=== PATIENT | male | born 1950 | race Caucasian/White ===

== ENCOUNTER 2020-04-18 10:13 | Inpatient (IN) | payer OTHER, MEDICARE ==
[~2020-04-18] VITALS: Ht 177.8 cm; Wt 129.3 kg
[2020-04-18 10:17] VITALS: BP 117/69
[2020-04-18 11:02] LABS: BE(vivo) 4.2 mmol/L (-2 to +3); HCO3 31.1 mmol/L (22.0-26.0); PCO2 55.7 mmHg (35.0-45.0); PO2 55.5 mmHg (80.0-100.0); pH 7.365 (7.360-7.450); sO2 87.3 % (92.0-98.0)
[2020-04-18 11:49] LABS: ABSOLUTE NEUTROPHILS 5.3 thou/uL (1.4-8.2); BASOPHILS 0.3 % (0.0-2.0); HEMATOCRIT 42.7 % (42.0-52.0); HEMOGLOBIN 13.7 gm/dL (14.0-18.0); LYMPHOCYTES 11.2 % (24.0-44.0); MCH 30.6 pg (26.0-34.0); MCHC 32.2 g/dL (28.0-37.0); MONOCYTES 9.1 % (1.0-8.0); PLATELET COUNT 153 thou/uL (150-400); POLYS 79.4 % (36.0-66.0); RBC 4.49 mil/uL (4.50-6.00); RDW 14.9 % (10.5-14.5); WBC 6.7 thou/uL (4.0-11.0)
[2020-04-18 11:59] VITALS: BP 96/60
[2020-04-18 12:03] LABS: ANION GAP 6 mmol/L (7-16); BUN 34 mg/dL (7-18); CALCIUM 9.2 mg/dL (8.5-10.1); CHLORIDE 100 mmol/L (98-107); CO2 32 mmol/L (21-32); CREATININE 1.9 mg/dL (0.7-1.3); GLUCOSE 116 mg/dL (74-106); POTASSIUM 4.3 mmol/L (3.5-5.1); SODIUM 138 mmol/L (136-145)
[2020-04-18 12:13] LABS: ALBUMIN 2.9 g/dL (3.4-5.0); DIRECT BILIRUBIN 0.3 mg/dL (<0.1-0.2); SGOT 32 U/L (15-37); SGPT 37 U/L (30-65); TOTAL BILIRUBIN 0.9 mg/dL (0.2-1.0); TOTAL PROTEIN 7.8 g/dL (6.4-8.2); TROPONIN-I <0.06 ng/mL (<0.06)
[2020-04-18 12:43] VITALS: BP 115/55
[2020-04-18] MEDS ORDERED: FUROSEMIDE 40 M40 M1 PO (12:48)
[2020-04-18] MEDS ORDERED: ALLOPURINOL 30300 M1 PO (12:49)
[2020-04-18] MEDS ORDERED: ATORVASTATIN CA10 MG PO (12:49)
[2020-04-18] MEDS ORDERED: HYDROCHLOROTHIA25 M2 PO (12:49)
[2020-04-18] MEDS ORDERED: LOPRESSOR50 PO (12:49)
[2020-04-18] MEDS ORDERED: LISINOPRIL40 MG PO (12:49)
[2020-04-18] MEDS ORDERED: POTASSIUM CHLO10 ME1 PO (12:50)
[2020-04-18 15:16] VITALS: BP 110/59
[2020-04-18 16:00] VITALS: BP 110/59
[2020-04-18] MEDS ORDERED: ASA81BEC PO (16:10)
--- NOTE | 2020-04-18 16:59 | NUR ---
PT ADMIITED FROM ER FOR SOB AND POSITIVE COVID AT 1500PM, PT IS A&OX3, PT IS ON O2 4L/MIN/NC TO KEEP O2SAT AT 94-95%, PT'S VS ARE STABLE, PT STARTS HEPARIN DRIP 1500UNITS/HR AT 1600PM, LAB PTT WILL CHECK AT 2200PM TODAY, PT DENIES PAIN AND SOB AT THIS TIME, NO S/S OF BLEEDING AT THIS TIME.
[2020-04-18 20:04] VITALS: BP 117/71
--- NOTE | 2020-04-18 23:48 | NUR ---
PT ALERT AND ORIENTED X4 . VSS. PTT 181 ELEVATED. HEPARIN GTT TURNED OFF FOR NOW. WILL TITRATE ORDERED. NO S/S BLEEDING NOTED. LE DOPPLERS DONE AND ARE NEGATIVE. INSTRUCTED PT TO NOT GET OOB WITHOUT HELP DUE TO IVS AND O2. SPUTUM AND MRSA SENT TO LAB.
[2020-04-19] VITALS (7 sets, daily range): BP systolic 118–135; BP diastolic 62–81
--- NOTE | 2020-04-19 07:16 | NUR ---
PT RESTING QUIETLY. VSS UNLABORED ON 4LNC. SA 40'S ON MONITOR THIS AM. NO C/O PAIN OR SOA. PTT STILL PENDING AT CHANGE OF SHIFT. PCXRAY STILL TO BE DONE. PROGRESSING TOWARDS D/C GOALS.
[2020-04-19 07:23] LABS: ABSOLUTE NEUTROPHILS 6.1 thou/uL (1.4-8.2); BASOPHILS 0.1 % (0.0-2.0); HEMATOCRIT 42.2 % (42.0-52.0); HEMOGLOBIN 13.4 gm/dL (14.0-18.0); MCH 30.7 pg (26.0-34.0); MCHC 31.9 g/dL (28.0-37.0); MCV 96.4 fL (80.0-100.0); MONOCYTES 2.6 % (1.0-8.0); PLATELET COUNT 131 thou/uL (150-400); POLYS 89.3 % (36.0-66.0); RBC 4.37 mil/uL (4.50-6.00); RDW 15.4 % (10.5-14.5); WBC 6.8 thou/uL (4.0-11.0)
[2020-04-19 07:36] LABS: FIBRINOGEN 487.6 mg/dL (210-360); INR 1.1; PROTIME 10.8 Seconds (9.3-11.4)
[2020-04-19 07:42] LABS: ALBUMIN 2.6 g/dL (3.4-5.0); CALCIUM 8.9 mg/dL (8.5-10.1); CREATININE 1.5 mg/dL (0.7-1.3); POTASSIUM 4.6 mmol/L (3.5-5.1); TOTAL BILIRUBIN 0.4 mg/dL (0.2-1.0); TOTAL PROTEIN 7.5 g/dL (6.4-8.2)
--- NOTE | 2020-04-19 16:55 | NUR ---
RN ASSUMED PT'S CARE AT 0700AM, PT IS A&OX3, PT IS ON O2 4L/MIN/NC, PT'S SOB HAS IMPROVED, PT IS CONTINUING IV ABX, PT'S HEPARIN DRIP HAD STOPPED AT 0930AM PER ORDER, PT DOES NOT HAVE S/S OF BLEEDING BY THIS TIME, PT'S VS ARE STABLE, PT GETS UP TO BATH ROOM, PT DENIES PAIN AT THIS TIME.
--- NOTE | 2020-04-19 23:06 | NUR ---
PT PROGRESSING SLOWLY TOWARDS D/C GOALS. VSS. UNLABORED ON 4LNC. NO C/O PAIN. NO S/S DISTRESS PRESENTLY.
[2020-04-20 04:23] VITALS: BP 130/74
[2020-04-20 04:54] LABS: ALBUMIN 2.3 g/dL (3.4-5.0); CALCIUM 8.6 mg/dL (8.5-10.1); CREATININE 1.4 mg/dL (0.7-1.3); DIRECT BILIRUBIN 0.1 mg/dL (<0.1-0.2); PHOSPHORUS 3.6 mg/dL (2.5-4.9); POTASSIUM 4.5 mmol/L (3.5-5.1); TOTAL BILIRUBIN 0.3 mg/dL (0.2-1.0); TOTAL PROTEIN 6.4 g/dL (6.4-8.2)
--- NOTE | 2020-04-20 07:25 | NUR ---
PT PROGRESSING TOWARDS D/C GOALS. VSS. NO C/O PAIN. NO SOA NOTED.UNLABORED ON 4LNC.
[2020-04-20 09:00] VITALS: BP 124/77
[2020-04-20 12:43] VITALS: BP 122/67
--- NOTE | 2020-04-20 16:40 | NUR ---
RN ASSUMED PT'S CARE AT 0700AM, PT IS A&OX3, PT'S SOB HAS IMPROVED, PT'S O2 HAS REDUCED TO 3L FROM 4L/MIN/NC, PT IS CONTINUING IV ABX , PT GETS TO CHAIR AND BATHROOM BY HIMSELF, PT 'S VS AND O2SAT ARE STABLE, PT DENIES PAIN BY THIS TIME.
[2020-04-20 17:19] VITALS: BP 144/63
[2020-04-20 20:55] VITALS: BP 141/79
--- NOTE | 2020-04-20 22:49 | NUR ---
PT ALERT AND ORIENTED X4 . VSS. UNLABORED CURRENTLY. DENIED PAIN OR SOA. NO S/S DISTRESS. UP TO THE BR INDEPENDENTLY. WILL CONTINUE TO MONITOR PT FOR CHANGES.
[2020-04-21 01:06] VITALS: BP 125/69
[2020-04-21 04:43] VITALS: BP 148/76
--- NOTE | 2020-04-21 04:50 | NUR ---
PROGRESSING TOWARDS D/C GOALS VSS. AFEBRILE. UNLABORED ON 2.5LNC. LUNGS SOUND DIMINISHED WITH WHEEZES. NO C/O PAIN. NO S/S DISTRESS. PT UP IN CHAIR WATCHING TV.
[2020-04-21 06:51] LABS: ALBUMIN 2.4 g/dL (3.4-5.0); CALCIUM 8.6 mg/dL (8.5-10.1); CREATININE 1.1 mg/dL (0.7-1.3); DIRECT BILIRUBIN 0.1 mg/dL (<0.1-0.2); PHOSPHORUS 3.6 mg/dL (2.5-4.9); POTASSIUM 5.3 mmol/L (3.5-5.1); TOTAL BILIRUBIN 0.3 mg/dL (0.2-1.0); TOTAL PROTEIN 6.7 g/dL (6.4-8.2)
[2020-04-21 07:31] VITALS: BP 11/71
[2020-04-21 15:35] VITALS: BP 145/73
--- NOTE | 2020-04-21 16:31 | NUR ---
Case opened to follow for dc planning. Chart reviewed and case discussed with the care team. Pt admitted with Covid+pneumonia/sars. Covid+ almost 2wks ago with worsening repiratory symptoms. He is improving and his sob and o2 needs are better. Now on 2.5liters O2,steriods and iv atb. [employer] attempted to reach the pt via phone due to enhanced ISO. No answer. The pt is noted to be up ad pearl in his room to the chair and the bathroom and is a&ox4. He was indep and working prior to admission and lives at home with his . His pcp is Dr. Alford. Dc anticipated in [id number]. Will follow along should the pt need home o2 at dc.
--- NOTE | 2020-04-21 16:54 | NUR ---
RN ASSUMED PT'S CARE AT 0700AM, PT IS A&OX3, PT IS CONTINUING IV ABX , PT IS ON O2 2L/MIN/NC, PT'S VS ARE STABLE, PT GETS UP TO BATH ROOM AND WALKS IN HIS ROOM , PT DENIES SOB AND PAIN BY THIS TIME.
[2020-04-21 20:01] VITALS: BP 127/71
[2020-04-22 05:00] VITALS: BP 166/86
--- NOTE | 2020-04-22 06:12 | NUR ---
PT MAKING PROGRESS TOWARDS GOALS. DAY RN REPORTED PT O2 USE DOWN TO 2L FROM 4L. PT DENIED ANY SOA WITH AMBULATING TO THE TOILET AND ABOUT HIS ROOM. DENIES ANY SOA WHILE AT REST. DENIES O2 USE AT HOME. O2 SAT 99% ON 2L WHILE SITTING UP IN CHAIR. ENCOURAGED TO REMOVE THE O2 CANNULA WHILE AT REST BUT RESUME THE OXYGEN WITH ANY ACTIVITY AND UNTIL EVALUATED BY THE DAY RN.
[2020-04-22 06:29] LABS: ALBUMIN 2.6 g/dL (3.4-5.0); CALCIUM 8.8 mg/dL (8.5-10.1); CREATININE 1.3 mg/dL (0.7-1.3); DIRECT BILIRUBIN 0.2 mg/dL (<0.1-0.2); PHOSPHORUS 3.8 mg/dL (2.5-4.9); POTASSIUM 5.6 mmol/L (3.5-5.1); TOTAL BILIRUBIN 0.5 mg/dL (0.2-1.0); TOTAL PROTEIN 6.8 g/dL (6.4-8.2)
[2020-04-22 07:30] VITALS: BP 147/83
[2020-04-22 11:15] VITALS: BP 173/83
--- NOTE | 2020-04-22 14:09 | NUR ---
SW reviewed chart and spoke with nursing and attending physician. Pt remains in Enhanced Isolation due to COVID-19. Pt is afebrile and not requiring O2. Pt is on IV abx and IV steroids. Pt is completing course of Remdesivir. Rest/exercise oximetry was completed earlier today. Pt does not qualify for home O2. Plan is for pt to discharge home tomorrow. [facility] is following to assist as needed with discharge planning.
[2020-04-22 15:30] VITALS: BP 157/84
--- NOTE | 2020-04-22 16:01 | NUR ---
RN ASSUMED PT'S CARE AT 0700AM, PT IS A&OX3, PT IS CONTINUING IV ABX , PT WILL FINISHING COURSE OF REMDESIVIR TONIGHT, PT IS ON O2 2L/MIN/NC, PT DENIES SOB AND POIAN BY THIS TIME, PT'S VS ARE STABLE, PT MAY DC TO HOME TOMORROW.
[2020-04-22 20:27] VITALS: BP 156/89
[2020-04-23 05:05] VITALS: BP 158/86
--- NOTE | 2020-04-23 05:52 | NUR ---
PT MAKING PROGRESS TOWARDS GOALS. DENIES SOA WHILE AT REST OR BEING UP IN ROOM. O2 AT 2L PER NC. NO COMPLAINTS VOICED.
[2020-04-23 06:36] LABS: CALCIUM 8.5 mg/dL (8.5-10.1); CREATININE 1.3 mg/dL (0.7-1.3); POTASSIUM 5.1 mmol/L (3.5-5.1)
[2020-04-23 07:35] VITALS: BP 172/91
[2020-04-23 11:23] VITALS: BP 162/82
[2020-04-23] MEDS ORDERED: B-12500 MCG PO (12:58)
[2020-04-23] MEDS ORDERED: VITAMIN D325 MC1 PO (12:58)
[2020-04-23] MEDS ORDERED: FOLIC ACID0.4 MG PO (12:58)
[2020-04-23] MEDS ORDERED: ACEROLA C500 MG PO (12:58)
[2020-04-23] MEDS ORDERED: ZINC SULFATE 2220 MG PO (12:58)
[2020-04-23] MEDS ORDERED: PREDNISONE 5 MG5 MG PO (12:58)
[2020-04-23] MEDS ORDERED: CEFUROXIME500 MG PO (12:58)
[2020-04-23] MEDS ORDERED: ACETAMINOPHEN325 M1 PO (12:58)
[2020-04-23] MEDS ORDERED: VITAMIN B-1100 M2 PO (12:58)
[2020-04-23 13:12] VITALS: BP 162/82
[2020-04-23 14:21] VITALS: BP 162/82
--- NOTE | 2020-04-23 14:57 | NUR ---
PATIENT D/C'D TO HOME WITH O2 TANK PROVIDED BY [employer]. PRESCRIPTIONS CALLED INTO TO [facility] - [facility] IN [place].
--- NOTE | 2020-04-23 15:42 | NUR ---
DISCHARGE NOTE: SW reviewed chart and spoke with nursing and attending physician. Pt remains in Enhanced Isolation due to COVID-19. Pt is medically stable for discharge home today. Pt does qualify for home O2: 2L with activity. Orders also written for HH. SW placed call to pt's room. No answer. SW spoke with pt's , Eunice, via phone to discuss discharge. Pt has not used any HH or DME providers in the past. Options provided. No preference voiced. SW confirmed pt's home address and contact info. Pt's is agreeable with discharge plan and will be providing transportation. SW faxed referrals and discharge orders/summary to [facility] for DME. Notified liaisons of referrals. [facility] liaison to provide portable O2 tank for transport home. Nursing to call pt's when portable O2 tank has been delivered. Pt's PCP is Dr. Brian Douglass at [facility]. Contact info for [facility] and [facility] placed in pt's discharge summary. No additional SW needs identified at this time, but is available to assist should needs arise.
== END 2020-04-23 15:00 | disposition home health service (06) | DRG 871 ==
LOC: ER 10:13 → EROBS 13:34 → 3W 13:34
PROVIDERS: Emergency Medicine; Internal Medicine; Nurse Practitioner; Specialist; ADMIT Hospitalist; ATTEND Hospitalist
PROC: XW033E5 Introduction of Remdesivir Anti-infective into Peripheral Vein, Percutaneous Approach, New Technology Group 5 (ICD-10-PCS; principal; 2020-04-18)
DX: A41.9 Sepsis, unspecified organism (principal); U07.1 COVID-19; J96.01 Acute respiratory failure with hypoxia; J12.9 Viral pneumonia, unspecified; N17.9 Acute kidney failure, unspecified; E44.0 Moderate protein-calorie malnutrition; Z68.41 Body mass index [BMI] 40.0-44.9, adult; I10 Essential (primary) hypertension; E78.5 Hyperlipidemia, unspecified; I25.10 Atherosclerotic heart disease of native coronary artery without angina pectoris; R00.1 Bradycardia, unspecified; E87.5 Hyperkalemia; E66.01 Morbid (severe) obesity due to excess calories; Z79.82 Long term (current) use of aspirin; Z95.5 Presence of coronary angioplasty implant and graft; Z79.899 Other long term (current) drug therapy
CPT/HCPCS: 10879